=== PATIENT | female | born 1965 | race Caucasian/White ===

== ENCOUNTER 2018-02-02 08:46 | Outpatient (CLI) | payer BC | END 2018-02-02 08:47 | disposition home or self-care (01) | LOC: BICMAMMO 08:46 | PROVIDERS: ATTEND Family Medicine | DX: Z12.31 Encounter for screening mammogram for malignant neoplasm of breast (principal) | CPT/HCPCS: 77063; 77067 ==

== ENCOUNTER 2018-11-14 10:26 | Emergency (ER) | payer BC ==
[2018-11-14] MEDS ORDERED: Ketorolac Tromethamine 30 MG/ML VIAL ONE (10:52)
[2018-11-14 10:56] LABS: #Basophils 0.1 thou/uL (0.0-0.2); #Eosinphils 0.1 thou/uL (0.0-0.7); #Lymphocytes 1.7 thou/uL (1.20-3.40); #Monocytes 0.4 thou/uL (0.11-0.59); #Neutrophils 3.3 thou/uL (1.40-6.50); %Basophils 1.3 % (0.0-1.0); %Eosinophils 2.6 % (0.0-10.0); %Lymphocytes 29.9 % (21.0-51.0); %Monocytes 7.4 % (0.0-10.0); %Neutrophils 58.9 % (42.0-75.0); Hemoglobin 14.5 g/dL (12.0-16.0); Mean Corpuscular HGB CONC 33.5 g/dL (32.0-36.0); Mean Corpuscular Hemoglobin 31.8 pg (27.0-31.0); Mean Corpuscular Volume 94.9 fL (78.0-98.0); Mean Platelet Volume 8.7 fL (7.4-10.4); Platelet Count 305 thou/uL (130-400); RBC Distribution Width 11.8 % (11.5-14.5); Red Blood Cell (RBC) Count 4.57 mill/uL (4.20-5.40); White Blood Cell (WBC) Count 5.6 thou/uL (4.8-10.8)
[2018-11-14 11:12] LABS: ALT (SGPT) 20 U/L (8-55); AST (SGOT) 19 U/L (5-34); Albumin 4.5 g/dL (3.5-5.0); Alkaline Phosphatase 84 U/L (40-150); Anion Gap 14 mmol/L (10-20); BUN (Urea Nitrogen) 14 mg/dL (9.8-20.1); Bilirubin, Total 0.5 mg/dL (0.2-1.2); CK (CPK) 112 U/L (29-168); Calc. Creatinine Clearance 0 mL/min (70-130); Calcium 10.1 mg/dL (7.8-10.44); Carbon Dioxide 24 mmol/L (22-29); Chloride 110 mmol/L (98-107); Estimated GFR-MDRD 67; Globulin 2.8 g/dL (2.4-3.5); Glucose 96 mg/dL (70-105); Potassium 3.9 mmol/L (3.5-5.1); Protein, Total 7.3 g/dL (6.0-8.3); Sodium 144 mmol/L (136-145)
--- NOTE | 2018-11-14 11:24 | RAD ---
PA AND LATERAL CHEST: HISTORY: Chest pain. FINDINGS: The heart size is normal. No focal areas of consolidation, pneumothoraces, ruth pulmonary edema, or pleural effusions are seen. No acute osseous abnormalities are identified. IMPRESSION: No radiographic evidence of acute cardiopulmonary process. POS: [facility]
[2018-11-14 14:01] LABS: Troponin I Less than 0.010 ng/mL (< 0.028)
== END 2018-11-14 14:10 | disposition home or self-care (01) ==
LOC: SCSER 10:26
DX: R07.89 Other chest pain (principal); E78.5 Hyperlipidemia, unspecified; E03.9 Hypothyroidism, unspecified; F41.9 Anxiety disorder, unspecified
CPT/HCPCS: 71046; 80053; 82550; 84484; 85025; 85379; 93005; 96374; J1885

== ENCOUNTER 2019-02-03 08:01 | Outpatient (CLI) | payer BC ==
--- NOTE | 2019-02-03 09:45 | MMO ---
Bilateral MAMMO Bilat Screen [facility]. CLINICAL HISTORY: Patient is 53 years old and is seen for screening. The patient has no family history of breast cancer. The patient has no personal history of cancer. VIEWS: The views performed were: bilateral craniocaudal with tomosynthesis and bilateral mediolateral oblique with tomosynthesis. FILMS COMPARED: The present examination has been compared to prior imaging studies performed at [facility] on 10/04/2014, 10/31/2015, 01/29/2017 and 02/02/2018. This study has been interpreted with the assistance of computer-aided detection. MAMMOGRAM FINDINGS: There are scattered fibroglandular densities. There are no suspicious masses, suspicious calcifications, or new areas of architectural distortion. IMPRESSION: THERE IS NO MAMMOGRAPHIC EVIDENCE OF MALIGNANCY. A ROUTINE FOLLOW-UP MAMMOGRAM IN 1 YEAR IS RECOMMENDED. THE RESULTS OF THIS EXAM WERE SENT TO THE PATIENT. ACR BI-RADS Category 1 - Negative MAMMOGRAPHY NOTE: 1. A negative mammogram report should not delay a biopsy if a dominant of clinically suspicious mass is present. 2. Approximately 10% to 15% of breast cancers are not detected by mammography. 3. Adenosis and dense breasts may obscure an underlying neoplasm. Reported by: Arsenio BOYKIN Electonically Signed: [id number]
== END 2019-02-03 08:02 | disposition home or self-care (01) ==
LOC: BICMAMMO 08:01
PROVIDERS: ATTEND Family Medicine
DX: Z12.31 Encounter for screening mammogram for malignant neoplasm of breast (principal)
CPT/HCPCS: 77063; 77067

== ENCOUNTER 2020-02-07 07:55 | Outpatient (CLI) | payer BC ==
--- NOTE | 2020-02-07 08:32 | MMO ---
Bilateral MAMMO Bilat Screen [facility]. CLINICAL HISTORY: Patient is 54 years old and is seen for screening. The patient has no family history of breast cancer. The patient has no personal history of cancer. VIEWS: The views performed were: bilateral craniocaudal with tomosynthesis and bilateral mediolateral oblique with tomosynthesis. FILMS COMPARED: The present examination has been compared to prior imaging studies performed at [facility] on 10/31/2015, 01/29/2017, 02/02/2018 and 02/03/2019. This study has been interpreted with the assistance of computer-aided detection. MAMMOGRAM FINDINGS: There are scattered fibroglandular densities. Finding 1: There are stable benign appearing calcifications seen in both breasts. Finding 2: There are stable benign appearing densities seen in both breasts. Finding 3: There is a stable intramammary lymph node seen in the right breast. There are no suspicious masses, suspicious calcifications, or new areas of architectural distortion. IMPRESSION: THERE IS NO MAMMOGRAPHIC EVIDENCE OF MALIGNANCY. A ROUTINE FOLLOW-UP MAMMOGRAM IN 1 YEAR IS RECOMMENDED. THE RESULTS OF THIS EXAM WERE SENT TO THE PATIENT. ACR BI-RADS Category 2 - Benign finding MAMMOGRAPHY NOTE: 1. A negative mammogram report should not delay a biopsy if a dominant of clinically suspicious mass is present. 2. Approximately 10% to 15% of breast cancers are not detected by mammography. 3. Adenosis and dense breasts may obscure an underlying neoplasm. Reported by: CUATE ZALDIVAR MD Electonically Signed: [id number]
== END 2020-02-07 07:56 | disposition home or self-care (01) ==
LOC: BICMAMMO 07:55
PROVIDERS: ATTEND Family Medicine
DX: Z12.31 Encounter for screening mammogram for malignant neoplasm of breast (principal)
CPT/HCPCS: 77063; 77067

== ENCOUNTER 2021-05-08 13:13 | Outpatient (CLI) | payer BC | END 2021-05-08 13:14 | disposition home or self-care (01) | LOC: BICMAMMO 13:13 | PROVIDERS: ATTEND Family Medicine | DX: Z12.31 Encounter for screening mammogram for malignant neoplasm of breast (principal) | CPT/HCPCS: 77063; 77067 ==

== ENCOUNTER 2022-11-12 06:17 | Day surgery (SDC) | payer BC ==
[2022-11-11 10:38] VITALS: BMI 26.6
[2022-11-12] MEDS ORDERED: fentaNYL PF 100 MCG/2 ML SYRINGE ONE (06:51)
[2022-11-12] MEDS ORDERED: Sevoflurane 250 ML INH ANEST BOTTLE ONE (06:51)
[2022-11-12 07:41] LABS: Hematocrit 41.3 % (36.0-47.0)
[2022-11-12] MEDS ORDERED: Oxymetazoline HCl 0.05% (30 ML BOT) ONE ×2 (08:02→08:09)
[2022-11-12] MEDS ORDERED: Lidocaine 1% (PF) 30 ML VIAL ONE (08:08)
[2022-11-12] MEDS ORDERED: EPINEPHrine 1 MG/ML AMP ONE (08:08)
[2022-11-12] MEDS ORDERED: Bacitracin Zinc Ointment 30 gm TUBE ONE (08:09)
[2022-11-12] MEDS ORDERED: SUGAMMADEX SODIUM 200 MG/2 ML VIAL ONE (08:11)
[2022-11-12] MEDS ORDERED: Ketamine 50 MG/ML (10ML VIAL) ONE (08:11)
[2022-11-12] MEDS ORDERED: methylPREDNISolone Acetate 40 mg/ml Vial ONE (08:12)
[2022-11-12] MEDS ORDERED: Rocuronium Bromide 10 MG/ML (10ML VIAL) ONE (08:33)
[2022-11-12] MEDS ORDERED: Dexamethasone 20 MG/5 ML VIAL ONE (08:33)
[2022-11-12] MEDS ORDERED: PROPOFOL 200 MG/20 ML VIAL ONE (08:33)
[2022-11-12] MEDS ORDERED: Ondansetron PF 4 MG/2 ML Vial ONE (08:33)
[2022-11-12] MEDS ORDERED: Lidocaine 1% PF 5 ML VIAL ONE (08:33)
== END 2022-11-12 11:45 | disposition home or self-care (01) ==
LOC: SDC 06:17
PROVIDERS: ATTEND Otolaryngology Plastic Surgery within the Head & Neck
PROC: 09BM0ZZ Excision of Nasal Septum, Open Approach (ICD-10-PCS; principal; 2022-11-12)
PROC: 09TL0ZZ Resection of Nasal Turbinate, Open Approach (ICD-10-PCS; principal; 2022-11-12)
PROC: 0CBN0ZZ Excision of Uvula, Open Approach (ICD-10-PCS; principal; 2022-11-12)
DX: G47.33 Obstructive sleep apnea (adult) (pediatric) (principal); J34.2 Deviated nasal septum; J34.3 Hypertrophy of nasal turbinates; K13.79 Other lesions of oral mucosa; E03.9 Hypothyroidism, unspecified; E78.00 Pure hypercholesterolemia, unspecified; K21.9 Gastro-esophageal reflux disease without esophagitis; Z79.890 Hormone replacement therapy; Z79.899 Other long term (current) drug therapy
CPT/HCPCS: 85014; 88302; 93005; 93010; J0171; J1030; J1100; J2001; J2405; J2704

== ENCOUNTER 2022-11-20 12:58 | Outpatient (CLI) | payer BC | END 2022-11-20 12:59 | disposition home or self-care (01) | LOC: BICMRI 12:58 | PROVIDERS: ATTEND Orthopaedic Surgery Hand Surgery | DX: M48.02 Spinal stenosis, cervical region (principal); M50.31 Other cervical disc degeneration, high cervical region; M50.321 Other cervical disc degeneration at C4-C5 level; M50.322 Other cervical disc degeneration at C5-C6 level | CPT/HCPCS: 72141 ==

== ENCOUNTER 2023-05-11 10:42 | Outpatient (CLI) | payer BC | END 2023-05-11 10:43 | disposition home or self-care (01) | LOC: BICMAMMO 10:42 | PROVIDERS: ATTEND Family Medicine | DX: Z12.31 Encounter for screening mammogram for malignant neoplasm of breast (principal); Z91.89 Other specified personal risk factors, not elsewhere classified | CPT/HCPCS: 77063; 77067 ==

== ENCOUNTER 2024-06-02 11:46 | Outpatient (CLI) | payer BC | END 2024-06-02 11:47 | disposition home or self-care (01) | LOC: BICMAMMO 11:46 | PROVIDERS: ATTEND Family Medicine | DX: Z12.31 Encounter for screening mammogram for malignant neoplasm of breast (principal); Z91.89 Other specified personal risk factors, not elsewhere classified | CPT/HCPCS: 77063; 77067 ==

== ENCOUNTER 2024-09-28 09:51 | Outpatient (CLI) | payer BC | END 2024-09-28 09:52 | disposition home or self-care (01) | LOC: ULT 09:51 | PROVIDERS: ATTEND Family Medicine | DX: R10.10 Upper abdominal pain, unspecified (principal) | CPT/HCPCS: 76700 ==